=== PATIENT | male | born 1985 | race Caucasian/White ===

== ENCOUNTER 2018-10-21 08:08 | Emergency (ER) | payer OTHER ==
[~2018-10-21] VITALS: Ht 162.6 cm; Wt 77.1 kg
[2018-10-21] MEDS ORDERED: PROTONIX40 MG PO (12:16)
[2018-10-21] MEDS ORDERED: ZANTAC300 MG PO (12:16)
== END 2018-10-21 12:31 | disposition home or self-care (01) ==
LOC: ER 08:08
DX: K29.60 Other gastritis without bleeding (principal); E86.0 Dehydration